=== PATIENT | female | born 1965 ===

== ENCOUNTER 2021-07-19 20:32 | Inpatient (IN) ==
[2021-07-19] MEDS ORDERED: SODIUM CHLORIDE 0.9% 1,000 ML IV PRN (22:13)
[2021-07-19 22:41] LABS: ABG Base Excess 0.7 MMOL/L (-2.5-2.5); ABG HCO3 25.1 MMOL/L (20-26); ABG Oxygen Saturation 97.3 % (95-100); ABG PCO2 37.2 MM HG (35-48); ABG PH 7.435 (7.35-7.45); ABG PO2 85.3 MM HG (80-95); ABG TCO2 24.3 MMOL/L (23-27)
[2021-07-19] MEDS ORDERED: ONDANSETRON 4 MG/2 ML VIAL IV PRN (23:29)
[2021-07-19] MEDS ORDERED: guaiFENesin/DM ER 600-30 MG TABLET PO PRN (23:29)
[2021-07-19] MEDS ORDERED: ZALEPLON 5 MG CAPSULE PO PRN (23:29)
[2021-07-19] MEDS ORDERED: NICOTINE 21 MG/24 HR PATCH TRANSDERM PRN (23:29)
[2021-07-19] MEDS ORDERED: ACETAMINOPHEN 325 MG TABLET PO PRN (23:29)
[2021-07-19] MEDS ORDERED: GLUCAGON 1 MG VIAL IM PRN (23:29)
[2021-07-19] MEDS ORDERED: diphenhydrAMINE CAP 25 MG CAPSULE PO PRN (23:29)
[2021-07-19] MEDS ORDERED: DOCUSATE SODIUM 100 MG CAPSULE PO PRN (23:29)
[2021-07-19] MEDS ORDERED: hydrALAZINE 20 MG/1 ML VIAL IV PRN (23:29)
[2021-07-19] MEDS ORDERED: DEXTROSE 10% 250 ML BAG IV PRN (23:36)
[2021-07-19 23:37] LABS: Basophils % 0.1 % (0.0-0.8); Eosinophils # 0.2 10*3/uL (0.0-0.87); Eosinophils % 2.2 % (0.00-10.9); Immature Granulocytes % 1.4 %; Immature Granulocytes Absolute 0.12 #; Lymphocytes # 1.5 10*3/uL (1.4-4.0); Lymphocytes % 17.3 % (21.3-54.2); Mean Corpuscular HGB Conc 27.1 GM/DL (32-36); Mean Corpuscular Volume 86.7 FL (87-102); Mean Platelet Volume 12.5 FL (9.6-12.0); Monocytes % 9.5 % (1.7-12.7); NRBC # 0.06 10*3/uL; Neutrophils % 69.5 % (38.7-73.9); Platelet Count 85 T/CUMM (130-400); Red Blood Count 1.66 MC/CUMM (3.8-5.5); White Blood Count 8.7 T/CUMM (4-12)
[2021-07-19 23:40] LABS: Hematocrit 14.4 VOL% (35.7-47.0); Hemoglobin 3.9 GM/DL (12.0-16.0)
[2021-07-19 23:51] LABS: Albumin 1.2 G/DL (3.4-5.0); Bilirubin,Total 4.5 MG/DL (0.20-1.00); Calcium 7.6 MG/DL (8.5-10.1); Potassium 3.6 MMOL/L (3.5-5.1); Total Protein 6.4 G/DL (6.4-8.2)
[2021-07-20] MEDS ORDERED: ALBUTEROL/IPRATROPIUM 3 ML NEB RESP TX ONE
[2021-07-20] MEDS: ALBUTEROL/IPRATROPIUM 3 ML NEB RESP TX SCH ×4 (00:02→19:57)
[2021-07-20] MEDS: FAMOTIDINE 20 MG/2 ML VIAL IV SCH ×3 (01:25→23:25)
[2021-07-20] MEDS: PANTOPRAZOLE INJ 200 MG in SODIUM CHLORIDE 0.9% 250 ML IV SCH (01:31)
[2021-07-20 04:55] LABS: Basophils % 0.3 % (0.0-0.8); Eosinophils # 0.3 10*3/uL (0.0-0.87); Eosinophils % 3.8 % (0.00-10.9); Immature Granulocytes % 1.1 %; Immature Granulocytes Absolute 0.08 #; Lymphocytes # 1.2 10*3/uL (1.4-4.0); Lymphocytes % 16.9 % (21.3-54.2); Mean Corpuscular HGB Conc 29.1 GM/DL (32-36); Mean Corpuscular Volume 88.2 FL (87-102); Mean Platelet Volume 11.8 FL (9.6-12.0); Monocytes % 8.6 % (1.7-12.7); NRBC # 0.03 10*3/uL; Neutrophils % 69.3 % (38.7-73.9); Platelet Count 75 T/CUMM (130-400); Red Blood Count 1.95 MC/CUMM (3.8-5.5); Red Cell Distribution Width 23.6 % (9.3-17.3); White Blood Count 7.2 T/CUMM (4-12)
[2021-07-20] MEDS ORDERED: INFLUENZA VIRUS VACCINE 0.5 ML SYRINGE IM ONE (04:58)
[2021-07-20 05:01] LABS: Hematocrit 17.2 VOL% (35.7-47.0)
[2021-07-20 05:18] LABS: Albumin 1.1 G/DL (3.4-5.0); Bilirubin,Total 4.1 MG/DL (0.20-1.00); Calcium 7.4 MG/DL (8.5-10.1); Osmolality,Calculated 275.8 MOS/KG (273-304); Potassium 3.7 MMOL/L (3.5-5.1); Total Protein 5.9 G/DL (6.4-8.2)
[2021-07-20] MEDS ORDERED: SODIUM CHLORIDE 0.9% 1,000 ML IV PRN (07:57)
[2021-07-20] MEDS ORDERED: chlordiazePOXIDE 10 MG CAPSULE PO PRN (10:56)
[2021-07-20 11:48] LABS: Hematocrit 20.9 VOL% (35.7-47.0)
[2021-07-20 11:51] LABS: Hemoglobin 6.1 GM/DL (12.0-16.0)
[2021-07-20] MEDS ORDERED: PERMETHRIN 1% LOTION 59 ML BOTTLE TOP ONE (14:12)
[2021-07-20] MEDS ORDERED: PERMETHRIN 5% CREAM 60 GM TUBE TOP ONE ×2 (14:19→21:00)
[2021-07-20] MEDS: ASCORBIC ACID 500 MG TABLET PO SCH ×2 (16:34→21:32)
[2021-07-20] MEDS: ATORVASTATIN 40 MG TABLET PO SCH (21:32)
[2021-07-20 21:51] LABS: Hematocrit 26.5 VOL% (35.7-47.0); Hemoglobin 8.2 GM/DL (12.0-16.0)
[2021-07-21] MEDS: ALBUTEROL/IPRATROPIUM 3 ML NEB RESP TX SCH ×4 (01:03→19:54)
[2021-07-21] MEDS: PANTOPRAZOLE INJ 200 MG in SODIUM CHLORIDE 0.9% 250 ML IV SCH (03:01)
[2021-07-21 10:37] LABS: Calcium 7.4 MG/DL (8.5-10.1); Osmolality,Calculated 274.8 MOS/KG (273-304); Potassium 3.7 MMOL/L (3.5-5.1)
[2021-07-21] MEDS: CHOLECALCIFEROL 5,000 UNIT TABLET PO SCH (11:22)
[2021-07-21] MEDS: ASCORBIC ACID 500 MG TABLET PO SCH ×3 (11:26→21:08)
[2021-07-21 11:49] LABS: Basophils % 0.3 % (0.0-0.8); Eosinophils # 0.7 10*3/uL (0.0-0.87); Eosinophils % 9.1 % (0.00-10.9); Hematocrit 28.2 VOL% (35.7-47.0); Hemoglobin 8.5 GM/DL (12.0-16.0); Immature Granulocytes % 1.2 %; Immature Granulocytes Absolute 0.09 #; Lymphocytes # 1.4 10*3/uL (1.4-4.0); Lymphocytes % 19.5 % (21.3-54.2); Mean Corpuscular HGB Conc 30.1 GM/DL (32-36); Mean Corpuscular Volume 89.2 FL (87-102); Mean Platelet Volume 10.8 FL (9.6-12.0); Monocytes % 9.3 % (1.7-12.7); NRBC # 0.09 10*3/uL; Neutrophils % 60.6 % (38.7-73.9); Platelet Count 63 T/CUMM (130-400); Red Blood Count 3.16 MC/CUMM (3.8-5.5); Red Cell Distribution Width 20.1 % (9.3-17.3); White Blood Count 7.4 T/CUMM (4-12)
[2021-07-21 12:14] LABS: Eosinophils 6 % (0-10); Lymphocytes 11 % (20-55); Metamyelocytes 1 %; Segmented Neutrophils 73 % (50-85); Total Cells Counted 100
[2021-07-21 12:15] LABS: Hypochromia 2+; Platelet Estimate Adequate; Polychromasia Slight
[2021-07-21] MEDS: FAMOTIDINE 20 MG/2 ML VIAL IV SCH (14:05)
[2021-07-21] MEDS: ATORVASTATIN 40 MG TABLET PO SCH (21:08)
[2021-07-21] MEDS: PANTOPRAZOLE 40 MG VIAL IV SCH (21:12)
[2021-07-22] MEDS: ALBUTEROL/IPRATROPIUM 3 ML NEB RESP TX SCH ×4 (00:45→19:45)
[2021-07-22 05:31] LABS: Basophils % 0.4 % (0.0-0.8); Eosinophils # 0.7 10*3/uL (0.0-0.87); Eosinophils % 9.1 % (0.00-10.9); Hematocrit 27.9 VOL% (35.7-47.0); Hemoglobin 8.1 GM/DL (12.0-16.0); Immature Granulocytes % 0.8 %; Immature Granulocytes Absolute 0.06 #; Lymphocytes # 1.7 10*3/uL (1.4-4.0); Lymphocytes % 21.6 % (21.3-54.2); Mean Corpuscular Volume 92.4 FL (87-102); Mean Platelet Volume 11.2 FL (9.6-12.0); Monocytes % 10.3 % (1.7-12.7); NRBC # 0.03 10*3/uL; Neutrophils % 57.8 % (38.7-73.9); Platelet Count 67 T/CUMM (130-400); Red Blood Count 3.02 MC/CUMM (3.8-5.5); Red Cell Distribution Width 20.5 % (9.3-17.3); White Blood Count 7.7 T/CUMM (4-12)
[2021-07-22 05:55] LABS: Calcium 7.2 MG/DL (8.5-10.1); Osmolality,Calculated 274.8 MOS/KG (273-304); Potassium 3.9 MMOL/L (3.5-5.1)
[2021-07-22 05:59] LABS: Hypochromia 1+
[2021-07-22 06:00] LABS: Anisocytosis 1+; Microcytosis 1+; Ovalocytes Slight; Target Cells Slight
[2021-07-22 06:01] LABS: Platelet Estimate Decreased; Polychromasia Slight
[2021-07-22 08:49] LABS: INR 1.5
[2021-07-22] MEDS: CHOLECALCIFEROL 5,000 UNIT TABLET PO SCH (09:51)
[2021-07-22] MEDS: PANTOPRAZOLE 40 MG VIAL IV SCH ×2 (09:51→21:40)
[2021-07-22] MEDS: ASCORBIC ACID 500 MG TABLET PO SCH ×3 (09:52→21:40)
[2021-07-22] MEDS: ATORVASTATIN 40 MG TABLET PO SCH (21:40)
[2021-07-23] MEDS: ALBUTEROL/IPRATROPIUM 3 ML NEB RESP TX SCH ×4 (00:15→19:23)
[2021-07-23] MEDS: ASCORBIC ACID 500 MG TABLET PO SCH ×3 (09:54→22:22)
[2021-07-23] MEDS: CHOLECALCIFEROL 5,000 UNIT TABLET PO SCH (09:54)
[2021-07-23] MEDS: PANTOPRAZOLE 40 MG VIAL IV SCH ×2 (09:54→22:22)
[2021-07-23 10:50] LABS: Basophils % 0.5 % (0.0-0.8); Eosinophils # 0.3 10*3/uL (0.0-0.87); Eosinophils % 5.9 % (0.00-10.9); Hematocrit 27.2 VOL% (35.7-47.0); Hemoglobin 7.9 GM/DL (12.0-16.0); Immature Granulocytes % 0.5 %; Immature Granulocytes Absolute 0.03 #; Lymphocytes # 0.8 10*3/uL (1.4-4.0); Lymphocytes % 13.5 % (21.3-54.2); Mean Corpuscular Volume 91.9 FL (87-102); Monocytes % 9.2 % (1.7-12.7); NRBC # 0.03 10*3/uL; Neutrophils % 70.4 % (38.7-73.9); Platelet Count 58 T/CUMM (130-400); Red Blood Count 2.96 MC/CUMM (3.8-5.5); Red Cell Distribution Width 21.2 % (9.3-17.3); White Blood Count 5.8 T/CUMM (4-12)
[2021-07-23 11:06] LABS: Calcium 7.6 MG/DL (8.5-10.1); Osmolality,Calculated 276.5 MOS/KG (273-304); Platelet Estimate Decreased; Potassium 3.9 MMOL/L (3.5-5.1)
[2021-07-23 11:07] LABS: Hypochromia Slight; Microcytosis Slight
[2021-07-23] MEDS ORDERED: FUROSEMIDE 40 MG/4 ML VIAL IV ONE (13:58)
[2021-07-23 14:09] LABS: ABG Base Excess 0.4 MMOL/L (-2.5-2.5); ABG HCO3 25.1 MMOL/L (20-26); ABG Oxygen Saturation 99.3 % (95-100); ABG PCO2 40.5 MM HG (35-48); ABG PO2 248.9 MM HG (80-95); ABG TCO2 26.3 MMOL/L (23-27)
[2021-07-23 14:10] LABS: Basophils # 0.1 10*3/uL (0.0-0.2); Basophils % 0.7 % (0.0-0.8); Eosinophils # 0.4 10*3/uL (0.0-0.87); Eosinophils % 5.9 % (0.00-10.9); Hematocrit 27.1 VOL% (35.7-47.0); Immature Granulocytes % 0.7 %; Immature Granulocytes Absolute 0.05 #; Lymphocytes # 0.7 10*3/uL (1.4-4.0); Lymphocytes % 9.7 % (21.3-54.2); Mean Corpuscular HGB Conc 29.5 GM/DL (32-36); Mean Corpuscular Volume 91.9 FL (87-102); Monocytes % 11.3 % (1.7-12.7); NRBC # 0.03 10*3/uL; Neutrophils % 71.7 % (38.7-73.9); Platelet Count 60 T/CUMM (130-400); Red Blood Count 2.95 MC/CUMM (3.8-5.5); Red Cell Distribution Width 21.3 % (9.3-17.3); White Blood Count 7.1 T/CUMM (4-12)
[2021-07-23 15:13] LABS: Hypochromia 2+
[2021-07-23 15:14] LABS: Platelet Estimate Decreased; Polychromasia Slight
[2021-07-23] MEDS: ATORVASTATIN 40 MG TABLET PO SCH (22:22)
[2021-07-24] MEDS: ALBUTEROL/IPRATROPIUM 3 ML NEB RESP TX SCH ×2 (02:00→07:10)
[2021-07-24 04:12] LABS: ABG Base Excess 4.4 MMOL/L (-2.5-2.5); ABG HCO3 28.8 MMOL/L (20-26); ABG Oxygen Saturation 96.8 % (95-100); ABG PCO2 42.6 MM HG (35-48); ABG PH 7.448 (7.35-7.45); ABG PO2 87.8 MM HG (80-95); ABG TCO2 30.1 MMOL/L (23-27)
[2021-07-24 06:24] LABS: Basophils % 0.4 % (0.0-0.8); Eosinophils # 0.3 10*3/uL (0.0-0.87); Eosinophils % 4.1 % (0.00-10.9); Hematocrit 27.7 VOL% (35.7-47.0); Immature Granulocytes % 0.6 %; Immature Granulocytes Absolute 0.04 #; Lymphocytes # 0.6 10*3/uL (1.4-4.0); Lymphocytes % 9.1 % (21.3-54.2); Mean Corpuscular HGB Conc 28.9 GM/DL (32-36); Mean Platelet Volume 11.2 FL (9.6-12.0); Monocytes % 8.7 % (1.7-12.7); NRBC # 0.02 10*3/uL; Neutrophils % 77.1 % (38.7-73.9); Platelet Count 56 T/CUMM (130-400); Red Blood Count 3.01 MC/CUMM (3.8-5.5); Red Cell Distribution Width 21.3 % (9.3-17.3)
[2021-07-24 06:36] LABS: Calcium 7.5 MG/DL (8.5-10.1); Osmolality,Calculated 278.4 MOS/KG (273-304); Potassium 3.6 MMOL/L (3.5-5.1)
[2021-07-24 06:53] LABS: Hypochromia 1+; Microcytosis 1+; Platelet Estimate Decreased
[2021-07-24 08:55] LABS: INR 1.6; PT Patient Result 17.6 SECS (10.5-12.0)
[2021-07-24] MEDS: CHOLECALCIFEROL 5,000 UNIT TABLET PO SCH (10:49)
[2021-07-24] MEDS: ASCORBIC ACID 500 MG TABLET PO SCH ×3 (10:49→20:52)
[2021-07-24] MEDS ORDERED: MELATONIN 3 MG TABLET PO PRN (12:58)
[2021-07-24] MEDS ORDERED: AZITHROMYCIN INJ 500 MG in SODIUM CHLORIDE 0.9% 250 ML IV ONE (12:58)
[2021-07-24] MEDS: PANTOPRAZOLE 40 MG VIAL IV SCH ×2 (13:09→20:52)
[2021-07-24] MEDS ORDERED: ALBUTEROL INHALER 18 GM INH PRN (13:48)
[2021-07-24 14:29] LABS: Albumin 1.2 G/DL (3.4-5.0); Calcium 7.4 MG/DL (8.5-10.1); Osmolality,Calculated 278.4 MOS/KG (273-304); Potassium 3.5 MMOL/L (3.5-5.1); Total Protein 6.7 G/DL (6.4-8.2)
[2021-07-24] MEDS: ALBUTEROL INHALER 18 GM INH SCH ×2 (15:26→20:52)
[2021-07-24] MEDS: DEXAMETHASONE 4 MG/1 ML VIAL IV SCH (15:26)
[2021-07-24] MEDS: ZINC GLUCONATE 50 MG TABLET PO SCH (15:27)
[2021-07-24] MEDS ORDERED: REMDESIVIR 200 MG in SODIUM CHLORIDE 0.9% 210 ML IV ONE (17:00)
[2021-07-24] MEDS: FAMOTIDINE 20 MG TABLET PO SCH (20:52)
[2021-07-24] MEDS: ATORVASTATIN 40 MG TABLET PO SCH (20:52)
[2021-07-25] MEDS: ALBUTEROL INHALER 18 GM INH SCH ×8 (02:33→21:23)
[2021-07-25 06:35] LABS: Basophils % 0.2 % (0.0-0.8); Eosinophils % 0.4 % (0.00-10.9); Hematocrit 27.5 VOL% (35.7-47.0); Hemoglobin 7.9 GM/DL (12.0-16.0); Immature Granulocytes % 0.8 %; Immature Granulocytes Absolute 0.04 #; Lymphocytes # 0.9 10*3/uL (1.4-4.0); Lymphocytes % 18.5 % (21.3-54.2); Mean Corpuscular HGB Conc 28.7 GM/DL (32-36); Mean Corpuscular Volume 90.8 FL (87-102); Neutrophils % 70.1 % (38.7-73.9); Platelet Count 50 T/CUMM (130-400); Red Blood Count 3.03 MC/CUMM (3.8-5.5); Red Cell Distribution Width 21.6 % (9.3-17.3); White Blood Count 4.7 T/CUMM (4-12)
[2021-07-25 07:00] LABS: Albumin 1.2 G/DL (3.4-5.0); Bilirubin,Total 3.5 MG/DL (0.20-1.00); Calcium 7.9 MG/DL (8.5-10.1); Ferritin 33.2 ng/mL (8-252); Osmolality,Calculated 279.4 MOS/KG (273-304); Potassium 3.4 MMOL/L (3.5-5.1); Total Protein 6.9 G/DL (6.4-8.2)
[2021-07-25 09:19] LABS: INR 1.6; PT Patient Result 17.6 SECS (10.5-12.0)
[2021-07-25] MEDS: ZINC GLUCONATE 50 MG TABLET PO SCH (09:40)
[2021-07-25] MEDS: ASCORBIC ACID 500 MG TABLET PO SCH ×3 (09:40→21:18)
[2021-07-25] MEDS: FAMOTIDINE 20 MG TABLET PO SCH ×2 (09:40→21:18)
[2021-07-25] MEDS: CETIRIZINE 10 MG TABLET PO SCH (09:40)
[2021-07-25] MEDS: AZITHROMYCIN 250 MG TABLET PO SCH (09:40)
[2021-07-25] MEDS: DEXAMETHASONE 4 MG/1 ML VIAL IV SCH (09:41)
[2021-07-25] MEDS: PANTOPRAZOLE 40 MG VIAL IV SCH ×2 (09:41→21:18)
[2021-07-25] MEDS: REMDESIVIR 100 MG in SODIUM CHLORIDE 0.9% 100 ML IV SCH (11:53)
[2021-07-25] MEDS: POTASSIUM CHLORIDE 20 MEQ TABLET PO PRN ×2 (11:53→15:36)
[2021-07-25] MEDS: CHOLECALCIFEROL 5,000 UNIT TABLET PO SCH (11:53)
[2021-07-25] MEDS ORDERED: DOCUSATE SODIUM 100 MG CAPSULE PO PRN (14:20)
[2021-07-25] MEDS ORDERED: LACTULOSE 20 GM/30 ML UDCUP PO PRN (14:20)
[2021-07-25] MEDS: ATORVASTATIN 40 MG TABLET PO SCH (21:18)
[2021-07-26] MEDS: ALBUTEROL INHALER 18 GM INH SCH ×7 (02:41→23:12)
[2021-07-26 07:38] LABS: Eosinophils % 0.2 % (0.00-10.9); Hematocrit 24.8 VOL% (35.7-47.0); Hemoglobin 7.1 GM/DL (12.0-16.0); Immature Granulocytes % 0.7 %; Immature Granulocytes Absolute 0.04 #; Lymphocytes # 0.8 10*3/uL (1.4-4.0); Mean Corpuscular HGB Conc 28.6 GM/DL (32-36); Mean Corpuscular Volume 91.2 FL (87-102); Mean Platelet Volume 11.5 FL (9.6-12.0); Monocytes % 9.5 % (1.7-12.7); Neutrophils % 75.6 % (38.7-73.9); Platelet Count 54 T/CUMM (130-400); Red Blood Count 2.72 MC/CUMM (3.8-5.5); Red Cell Distribution Width 21.5 % (9.3-17.3); White Blood Count 5.6 T/CUMM (4-12)
[2021-07-26 08:20] LABS: Albumin 1.2 G/DL (3.4-5.0); Bilirubin,Total 3.6 MG/DL (0.20-1.00); Calcium 7.7 MG/DL (8.5-10.1); Ferritin 27.3 ng/mL (8-252); Osmolality,Calculated 281.3 MOS/KG (273-304); Potassium 3.9 MMOL/L (3.5-5.1); Total Protein 6.5 G/DL (6.4-8.2)
[2021-07-26] MEDS ORDERED: SKIN HEALING OINT (AQUAPHOR) 50 GM TUBE TOP PRN (08:20)
[2021-07-26 08:26] LABS: INR 1.7; PT Patient Result 17.9 SECS (10.5-12.0)
[2021-07-26 08:42] LABS: Anisocytosis 2+; Band Neutrophils 7 % (0-10); Hypochromia 1+; Lymphocytes 10 % (20-55); Macrocytosis 1+; Platelet Estimate Decreased; Segmented Neutrophils 75 % (50-85); Total Cells Counted 100
[2021-07-26] MEDS: ZINC GLUCONATE 50 MG TABLET PO SCH (10:28)
[2021-07-26] MEDS: FAMOTIDINE 20 MG TABLET PO SCH ×2 (10:28→21:59)
[2021-07-26] MEDS: CETIRIZINE 10 MG TABLET PO SCH (10:28)
[2021-07-26] MEDS: AZITHROMYCIN 250 MG TABLET PO SCH (10:28)
[2021-07-26] MEDS: CHOLECALCIFEROL 5,000 UNIT TABLET PO SCH (10:28)
[2021-07-26] MEDS: POTASSIUM CHLORIDE 20 MEQ TABLET PO PRN (10:29)
[2021-07-26] MEDS: PANTOPRAZOLE 40 MG VIAL IV SCH ×2 (10:33→21:59)
[2021-07-26] MEDS: REMDESIVIR 100 MG in SODIUM CHLORIDE 0.9% 100 ML IV SCH (10:33)
[2021-07-26] MEDS: ASCORBIC ACID 500 MG TABLET PO SCH ×3 (12:00→21:59)
[2021-07-26] MEDS: DEXAMETHASONE 4 MG/1 ML VIAL IV SCH (12:11)
[2021-07-26 19:40] LABS: Hemoglobin 7.6 GM/DL (12.0-16.0)
[2021-07-26] MEDS: ATORVASTATIN 40 MG TABLET PO SCH (21:59)
[2021-07-27] MEDS: ALBUTEROL INHALER 18 GM INH SCH ×6 (02:52→23:51)
[2021-07-27 06:54] LABS: Hematocrit 23.8 VOL% (35.7-47.0); Hemoglobin 6.8 GM/DL (12.0-16.0); Immature Granulocytes % 0.5 %; Immature Granulocytes Absolute 0.03 #; Lymphocytes # 0.9 10*3/uL (1.4-4.0); Lymphocytes % 15.1 % (21.3-54.2); Mean Corpuscular HGB Conc 28.6 GM/DL (32-36); Mean Corpuscular Volume 92.2 FL (87-102); Mean Platelet Volume 11.2 FL (9.6-12.0); Monocytes % 7.7 % (1.7-12.7); NRBC # 0.02 10*3/uL; Neutrophils % 76.7 % (38.7-73.9); Platelet Count 53 T/CUMM (130-400); Red Blood Count 2.58 MC/CUMM (3.8-5.5); Red Cell Distribution Width 21.2 % (9.3-17.3); White Blood Count 5.8 T/CUMM (4-12)
[2021-07-27 07:14] LABS: Hypochromia 1+; Platelet Estimate Decreased
[2021-07-27] MEDS ORDERED: SODIUM CHLORIDE 0.9% 1,000 ML IV PRN (07:30)
[2021-07-27 07:39] LABS: Albumin 1.2 G/DL (3.4-5.0); Bilirubin,Total 2.6 MG/DL (0.20-1.00); Calcium 7.7 MG/DL (8.5-10.1); Ferritin 23.7 ng/mL (8-252); Osmolality,Calculated 281.4 MOS/KG (273-304); Total Protein 6.5 G/DL (6.4-8.2)
[2021-07-27] MEDS: CETIRIZINE 10 MG TABLET PO SCH (09:50)
[2021-07-27] MEDS: AZITHROMYCIN 250 MG TABLET PO SCH (09:50)
[2021-07-27] MEDS: CHOLECALCIFEROL 5,000 UNIT TABLET PO SCH (09:50)
[2021-07-27] MEDS: ASCORBIC ACID 500 MG TABLET PO SCH ×3 (09:50→21:25)
[2021-07-27] MEDS: FAMOTIDINE 20 MG TABLET PO SCH ×2 (09:50→21:25)
[2021-07-27] MEDS: DEXAMETHASONE 4 MG/1 ML VIAL IV SCH (09:57)
[2021-07-27] MEDS: REMDESIVIR 100 MG in SODIUM CHLORIDE 0.9% 100 ML IV SCH (09:59)
[2021-07-27] MEDS: ZINC GLUCONATE 50 MG TABLET PO SCH (09:59)
[2021-07-27] MEDS: PANTOPRAZOLE 40 MG VIAL IV SCH ×2 (09:59→21:27)
[2021-07-27] MEDS: cefTRIAXone 1,000 MG in SODIUM CHLORIDE 0.9% 100 ML IV SCH (12:23)
[2021-07-27] MEDS: ATORVASTATIN 40 MG TABLET PO SCH (21:25)
[2021-07-28] MEDS: ALBUTEROL INHALER 18 GM INH SCH ×6 (02:53→22:11)
[2021-07-28 07:33] LABS: Eosinophils % 0.3 % (0.00-10.9); Hematocrit 27.3 VOL% (35.7-47.0); Hemoglobin 7.9 GM/DL (12.0-16.0); Immature Granulocytes % 0.6 %; Immature Granulocytes Absolute 0.04 #; Lymphocytes # 1.2 10*3/uL (1.4-4.0); Mean Corpuscular HGB Conc 28.9 GM/DL (32-36); Mean Corpuscular Volume 90.1 FL (87-102); Mean Platelet Volume 10.6 FL (9.6-12.0); Monocytes % 8.4 % (1.7-12.7); Neutrophils % 73.7 % (38.7-73.9); Red Blood Count 3.03 MC/CUMM (3.8-5.5); Red Cell Distribution Width 20.6 % (9.3-17.3); White Blood Count 7.1 T/CUMM (4-12)
[2021-07-28 07:34] LABS: Platelet Count 57 T/CUMM (130-400)
[2021-07-28] MEDS: ASCORBIC ACID 500 MG TABLET PO SCH ×3 (10:19→22:03)
[2021-07-28] MEDS: ZINC GLUCONATE 50 MG TABLET PO SCH (10:19)
[2021-07-28] MEDS: CETIRIZINE 10 MG TABLET PO SCH (10:19)
[2021-07-28] MEDS: AZITHROMYCIN 250 MG TABLET PO SCH (10:19)
[2021-07-28] MEDS: CHOLECALCIFEROL 5,000 UNIT TABLET PO SCH (10:19)
[2021-07-28] MEDS: FAMOTIDINE 20 MG TABLET PO SCH ×2 (10:19→22:03)
[2021-07-28] MEDS: DEXAMETHASONE 4 MG/1 ML VIAL IV SCH (10:23)
[2021-07-28] MEDS: PANTOPRAZOLE 40 MG VIAL IV SCH ×2 (10:24→22:03)
[2021-07-28] MEDS: REMDESIVIR 100 MG in SODIUM CHLORIDE 0.9% 100 ML IV SCH (10:58)
[2021-07-28] MEDS: cefTRIAXone 1,000 MG in SODIUM CHLORIDE 0.9% 100 ML IV SCH (12:03)
[2021-07-28] MEDS: ATORVASTATIN 40 MG TABLET PO SCH (22:03)
[2021-07-29] MEDS: ALBUTEROL INHALER 18 GM INH SCH ×4 (04:42→17:36)
[2021-07-29 05:21] LABS: Hematocrit 24.7 VOL% (35.7-47.0); Hemoglobin 7.1 GM/DL (12.0-16.0); Immature Granulocytes % 0.6 %; Immature Granulocytes Absolute 0.04 #; Lymphocytes # 0.9 10*3/uL (1.4-4.0); Lymphocytes % 13.1 % (21.3-54.2); Mean Corpuscular HGB Conc 28.7 GM/DL (32-36); Mean Corpuscular Volume 90.5 FL (87-102); Mean Platelet Volume 10.9 FL (9.6-12.0); Monocytes % 9.4 % (1.7-12.7); Neutrophils % 76.9 % (38.7-73.9); Platelet Count 47 T/CUMM (130-400); Red Blood Count 2.73 MC/CUMM (3.8-5.5); Red Cell Distribution Width 20.6 % (9.3-17.3); White Blood Count 6.8 T/CUMM (4-12)
[2021-07-29 05:43] LABS: Hypochromia 1+; Microcytosis 1+; Ovalocytes Slight; Target Cells Slight
[2021-07-29 05:44] LABS: Platelet Estimate Decreased
[2021-07-29 05:59] LABS: Albumin 1.1 G/DL (3.4-5.0); Bilirubin,Total 2.7 MG/DL (0.20-1.00); Calcium 7.5 MG/DL (8.5-10.1); Osmolality,Calculated 278.5 MOS/KG (273-304); Potassium 4.1 MMOL/L (3.5-5.1); Total Protein 6.2 G/DL (6.4-8.2)
[2021-07-29] MEDS ORDERED: SODIUM CHLORIDE 0.9% 1,000 ML IV PRN (07:56)
[2021-07-29] MEDS ORDERED: MAGNESIUM SULF RIDER 2 GM/50 ML PREMIX IV ONE (08:00)
[2021-07-29] MEDS: CHOLECALCIFEROL 5,000 UNIT TABLET PO SCH (10:26)
[2021-07-29] MEDS: ASCORBIC ACID 500 MG TABLET PO SCH ×3 (10:26→23:06)
[2021-07-29] MEDS: CETIRIZINE 10 MG TABLET PO SCH (10:26)
[2021-07-29] MEDS: FAMOTIDINE 20 MG TABLET PO SCH ×2 (10:27→23:07)
[2021-07-29] MEDS: ZINC GLUCONATE 50 MG TABLET PO SCH (10:27)
[2021-07-29] MEDS: PANTOPRAZOLE 40 MG VIAL IV SCH ×2 (10:31→23:07)
[2021-07-29] MEDS: DEXAMETHASONE 4 MG/1 ML VIAL IV SCH (10:31)
[2021-07-29] MEDS: cefTRIAXone 1,000 MG in SODIUM CHLORIDE 0.9% 100 ML IV SCH (13:17)
[2021-07-29 19:37] LABS: Hematocrit 29.4 VOL% (35.7-47.0); Hemoglobin 8.9 GM/DL (12.0-16.0)
[2021-07-29] MEDS: ATORVASTATIN 40 MG TABLET PO SCH (23:06)
[2021-07-30 07:03] LABS: Eosinophils # 0.1 10*3/uL (0.0-0.87); Eosinophils % 1.7 % (0.00-10.9); Hematocrit 29.7 VOL% (35.7-47.0); Hemoglobin 8.9 GM/DL (12.0-16.0); Immature Granulocytes % 0.4 %; Immature Granulocytes Absolute 0.03 #; Lymphocytes % 12.6 % (21.3-54.2); Mean Corpuscular Volume 89.5 FL (87-102); Monocytes % 9.1 % (1.7-12.7); Neutrophils % 76.2 % (38.7-73.9); Platelet Count 57 T/CUMM (130-400); Red Blood Count 3.32 MC/CUMM (3.8-5.5); Red Cell Distribution Width 19.4 % (9.3-17.3)
[2021-07-30 07:24] LABS: Hypochromia 1+; Microcytosis 1+; Platelet Estimate Decreased
[2021-07-30 07:35] LABS: Albumin 1.1 G/DL (3.4-5.0); Bilirubin,Total 2.5 MG/DL (0.20-1.00); Calcium 7.8 MG/DL (8.5-10.1); Potassium 3.7 MMOL/L (3.5-5.1); Total Protein 6.7 G/DL (6.4-8.2)
[2021-07-30 08:26] VITALS: BP 110/61
[2021-07-30] MEDS: ALBUTEROL INHALER 18 GM INH SCH (11:28)
[2021-07-30] MEDS: DEXAMETHASONE 4 MG/1 ML VIAL IV SCH (11:28)
[2021-07-30] MEDS: FAMOTIDINE 20 MG TABLET PO SCH (11:28)
[2021-07-30] MEDS: ASCORBIC ACID 500 MG TABLET PO SCH (11:29)
[2021-07-30] MEDS: CHOLECALCIFEROL 5,000 UNIT TABLET PO SCH (11:29)
[2021-07-30] MEDS: PANTOPRAZOLE 40 MG VIAL IV SCH (11:29)
[2021-07-30] MEDS: ZINC GLUCONATE 50 MG TABLET PO SCH (11:29)
[2021-07-30] MEDS: CETIRIZINE 10 MG TABLET PO SCH (11:29)
== END 2021-07-30 13:47 | disposition home health service (06) | DRG 377 ==
LOC: N.ED 20:32 → N.EDINP 07-20 02:50 → SUATTDRO 07-20 02:50 → N.TELES 07-20 04:31
PROVIDERS: ADMIT Emergency Medicine; ATTEND Internal Medicine